=== PATIENT | male | born 1990 | race African-American/Black ===

== ENCOUNTER 2020-09-10 10:13 | Emergency (ER) | payer MEDICAID ==
[~2020-09-10] VITALS: Ht 172.7 cm; Wt 71.7 kg
[2020-09-10 10:26] VITALS: BP 109/80
[2020-09-10] MEDS ORDERED: cefTRIAXone SOD 1,000 MG VL IM ONE (13:45)
== END 2020-09-10 14:03 | disposition home or self-care (01) ==
LOC: ER 10:13
DX: J45.909 Unspecified asthma, uncomplicated (principal); J02.9 Acute pharyngitis, unspecified; Z20.828 Contact with and (suspected) exposure to other viral communicable diseases
CPT/HCPCS: 36415; 71046; 87426; 99284; C9803; J0696; U0003